=== PATIENT | female | born 2000 | race Two or more races ===

== ENCOUNTER 2021-02-09 12:14 | Emergency (ER) | payer MEDICAID ==
[~2021-02-09] VITALS: Ht 154.9 cm; Wt 68.8 kg
[2021-02-09 12:48] VITALS: BP 126/64
--- NOTE | 2021-02-09 14:09 | NUR ---
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
--- NOTE | 2021-02-09 14:19 | NUR ---
PT AMBULATORY TO ROOM 9 W/ C/O WOUND W/ PUS NOTICED WEDNESDAY. WOUND NOTED TO R INNER THIGH THE SIZE OF A HALF DOLLAR. PT STATES IT'S PAINFUL AND AT TIMES OOZES YELLOW PUS. PT RESTING ON MARTY. ELIO.
== END 2021-02-09 15:08 | disposition home or self-care (01) ==
LOC: ED 15:02
DX: L03.115 Cellulitis of right lower limb (principal); F17.210 Nicotine dependence, cigarettes, uncomplicated
CPT/HCPCS: 99406